=== PATIENT | female | born 1945 | race Caucasian/White ===

== ENCOUNTER 2017-03-15 10:58 | Emergency (ER) | END 2017-03-15 13:06 | disposition home or self-care (01) | DX: N30.00 Acute cystitis without hematuria (principal); I10 Essential (primary) hypertension ==

== ENCOUNTER → 2018-02-09 | Emergency (ER) | END | disposition home or self-care (01) ==

== ENCOUNTER 2018-02-11 08:43 | Emergency (ER) | END 2018-02-11 12:32 | disposition home or self-care (01) ==

== ENCOUNTER 2019-03-07 09:01 | Emergency (ER) | payer OTHER ==
[~2019-03-07] VITALS: Ht 157.5 cm; Wt 79.7 kg
[~2019-03-07 09:01] MED LIST: ALBU8.5H8 INH; AZIT250T PO; BENZ-6 PO; CEPH-443 PO; D-ME473S2 PO; HYDR-4011 PO; IBUP-1542 PO; MED4DP PO; PHEN-538 PO
[2019-03-07 09:12] VITALS: Ht 157.5 cm; Wt 79.7 kg
[2019-03-07] MEDS ORDERED: ALBUTEROL 0.083% (NEB) 2.5 MG/3 ML AMP HHN STA (09:24)
[2019-03-07] MEDS ORDERED: DEXAMETHASONE 10 MG/ML 1 ML INJ IM ONE (09:30)
[2019-03-07] MEDS ORDERED: IPRATROPIUM (NEB) 0.5 MG/2.5 ML AMP HHN ONE (09:30)
[2019-03-07] MEDS ORDERED: PSEUDOEPHEDRINE 30 MG TAB PO ONE (10:00)
[2019-03-07 10:38] VITALS: BP 133/76; PULSE 71; RESP 18
--- NOTE | 2019-03-07 10:45 | ERD ---
ER Documentation Chief Complaint Chief Complaint COUGH, CONGESTION FOR 5 DAYS HPI 73-year-old female presenting with cough and congestion x5 days. Patient describes as productive and denies any fevers. She took Tylenol 3 hours prior to evaluation. She denies any runny nose and has been taking Robitussin at home. Denies any leg swelling. Denies chest pain. Medical history is hypertension. NKDA. Surgical history and surgery to her right knee. Social history denies ROS All systems reviewed and are negative except as per history of present illness. Medications Home Meds Active Scripts Albuterol Sulfate* (Proair HFA*) 8.5 Gm Hfa.aer.ad, 2 PUFF INH Q4, #1 INHALER Prov:PAKO RUCKER PA-C 03/07/19 Methylprednisolone* (Medrol* DOSE PACK) 4 Mg/Dose-Pack Tab.ds.pk, 4 MG PO . DIRECTED, #1 PACKET Prov:PAKO RUCKER PA-C 03/07/19 Benzonatate* (Tessalon Perle*) 100 Mg Capsule, 100 MG PO Q8H PRN for COUGH, #30 CAP Prov:PAKO RUCKER PA-C 03/07/19 Dextromethorphan Hb-Promethazine Hcl* (Promethazine DM* Syrup) 473 Ml Syrup, 5 ML PO Q6 PRN for COUGH, #100 ML Prov:PAKO RUCKER PA-C 03/07/19 Ibuprofen* (Motrin*) 600 Mg Tab, 600 MG PO Q8 for pain, #30 TAB Prov:ALEX VINCENT DO 02/11/18 Azithromycin* (Zithromax*) 250 Mg Tablet, 250 MG PO .ALDAIR DIRECTED, #6 TAB TAKE 500 MG (2 TABS) THE FIRST DAY THEN 250 MG (1 TAB) DAYS 2-5 Prov:ALEX VINCENT DO 02/11/18 Ibuprofen* (Motrin*) 600 Mg Tab, 600 MG PO Q6H PRN for PAIN AND OR ELEVATED TEMP, #20 TAB Prov:DEVAN LEON MD 02/10/18 Phenazopyridine Hcl* (Pyridium*) 200 Mg Tab, 200 MG PO TID PRN for URINARY PAIN, #6 TAB Prov:CAIT ALLEN MD 03/15/17 Cephalexin* (Keflex*) 500 Mg Capsule, 500 MG PO QID for 5 Days, CAP Prov:CAIT ALLEN MD 03/15/17 Hydrocodone/Acetaminophen (Tea 5-325 Tablet) 1 Each Tablet, 1 TAB PO Q6H PRN for PAIN, #7 TAB Prov:SAVITA YAN NP 06/13/16 Ibuprofen* (Motrin*) 600 Mg Tab, 600 MG PO Q6, #20 TAB Prov:SAVITA YAN NP 06/13/16 Allergies Allergies: Coded Allergies: No Known Allergies (Verified Allergy, Mild, 03/15/17) PMhx/Soc History of Surgery: Yes (,HYSTERECTOMY, shoulder repair, R knee) Anesthesia Reaction: No Hx Neurological Disorder: No Hx Respiratory Disorders: No Hx Cardiac Disorders: Yes (HTN) Hx Psychiatric Problems: No Hx Miscellaneous Medical Probl: No Hx Alcohol Use: No Hx Substance Use: No Hx Tobacco Use: No FmHx Family History: No diabetes, No coronary disease, No other Physical Exam Vitals Vital Signs Date Temp Pulse Resp B/P (MAP) Pulse Ox O2 O2 Flow FiO2 Time Delivery Rate 03/07/19 98.1 71 18 133/76 96 10:38 (95) 03/07/19 65 18 97 21 09:40 03/07/19 98.4 71 20 137/69 99 09:12 (91) Physical Exam GENERAL: The patient is well-appearing, well-nourished, in no acute distress HEENT: Atraumatic. Conjunctivae are pink. Pupils equal, round, and reactive to light. There is no scleral icterus. Tympanic membranes clear bilaterally. Oropharynx clear. NECK: C-spine is soft and supple. There is no meningismus. There is no cervical lymphadenopathy. CHEST: Clear to auscultation bilaterally. There are no rales, wheezes or r honchi. HEART: Regular rate and rhythm. No murmurs, clicks, rubs or gallops. No S3 or S4. Results 24 hrs Current Medications Medications Dose Sig/Aurea Start Time Status Last (Trade) Ordered Route PRN Stop Time Admin Dose Reason Admin Albuterol 5 mg ONCE STAT 03/07/19 DC 03/07/19 (Proventil HHN 09:24 03/07/19 09:38 0.083% (Neb)) 09:27 Ipratropium 0.5 mg ONCE ONCE 03/07/19 DC 03/07/19 [place] HHN 09:30 03/07/19 09:38 (Atrovent 09:31 0.02% (Neb)) 10 mg ONCE ONCE 03/07/19 DC 03/07/19 Dexamethasone IM 09:30 03/07/19 09:31 (Decadron) 09:31 30 mg ONCE ONCE 03/07/19 DC Pseudoephedri PO 10:00 03/07/19 ne HCl 10:00 (Sudogest) Procedures/MDM DIAGNOSTIC IMAGING REPORT Patient: KUMAR SPANGLER : 1945 Age: 73 Sex: F MR #: [id number] DOS: 03/07/1925 Ordering MD: MAXIM RUCKER PA-C Location: E Room/Bed: PROCEDURE: XR Chest. CLINICAL INDICATION: Cough. TECHNIQUE: Single frontal portable chest was obtained. COMPARISON: CR CHEST 05/18/2015; CR CHEST 01/08/2013. FINDINGS: Cardiomediastinal silhouette appears normal There are atherosclerotic calcifications in the thoracic aorta. Pulmonary vasculature appears normal. Lung liz appear clear for an acute air space process. Unchanging calcified granuloma in the right mid lung field. Costophrenic angles are well defined. The osseous elements appear intact. IMPRESSION: 1. Atherosclerotic calcifications in the thoracic aorta. 2. No evidence for active cardiopulmonary disease. 3. Granulomatous residua. ER course: Albuterol and Atrovent breathing treatment given in ED. Decadron given in ED. MDM: 73-year-old female presenting with cough. I have low suspicion for p neumonia. I have low suspicion for respiratory distress or hypoxia. Patient likely has viral cough and will be discharged with supportive medications. I have low suspicion for CHF or cardiac emergency. All questions answered at discharge Departure Diagnosis: Primary Impression: Cough Condition: Stable Patient Instructions: Cough, Chronic, Uncertain Cause, (Adult) Referrals: [facility] YOU HAVE RECEIVED A MEDICAL SCREENING EXAM AND THE RESULTS INDICATE THAT YOU DO NOT HAVE A CONDITION THAT REQUIRES URGENT TREATMENT IN THE EMERGENCY DEPARTMENT. FURTHER EVALUATION AND TREATMENT OF YOUR CONDITION CAN WAIT UNTIL YOU ARE SEEN I [place] YOUR DOCTORS OFFICE WITHIN THE NEXT 1-2 DAYS. IT IS YOUR RESPONSIBILITY TO MAKE AN APPOINTMENT FOR FOLOW-UP CARE. IF YOU HAVE A PRIMARY DOCTOR --you should call your primary doctor and schedule an appointment IF YOU DO NOT HAVE A PRIMARY DOCTOR YOU CAN CALL OUR PHYSICIAN REFERRAL HOTLINE AT IF YOU CAN NOT AFFORD TO SEE A PHYSICIAN YOU CAN CHOSE FROM THE FOLLOWING [facility] [address] [facility] [address] [facility] [address] [facility] [address] [facility] [address] [facility]. [facility]. [address] Additional Instructions: FOLLOW UP WITH YOUR PRIMARY CARE PHYSICIAN TOMORROW.Return to this facility if you are not improving as expected. PAKO RUCKER PA-C Mar 07, 2019 10:45
[2019-03-12] MEDS ORDERED: PROPOFOL 20 ML ONE (09:21)
[2019-03-12] MEDS ORDERED: EPHEDrine 25 MG/5 ML SYG ONE (09:22)
== END 2019-03-07 10:38 | disposition home or self-care (01) ==
LOC: FTE 09:01
DX: R05 Cough (principal); I10 Essential (primary) hypertension
CPT/HCPCS: 71045; 94664; 96372; 99284; J1100